=== PATIENT | female | born 1965 | race Caucasian/White ===

== ENCOUNTER 2016-11-03 07:04 | Day surgery (SDC) | payer BC ==
[~2016-11-03] VITALS: Ht 154.9 cm; Wt 80.9 kg
[~2016-11-03 07:04] MED LIST: AMI25 PO; ATOR10TA65 PO; BACL10TA PO; BCL80INH INH; BUPR150T18 PO; BUPR300T48 PO; CALC600T PO; CHOL200043 PO; CITA-98 PO; CITA20TA11 PO; CYCL-319 PO; GLUC15002 PO; HYDR-1666 PO; IBUP800T25 PO; LIDO700A31 TP; LITH300T26 PO; LORA10TA3 PO; LOVA20TA PO; MELO-174 PO; MONT10TA24 PO; MULT-860 PO; OMEP40CA6 PO; OXCA300O PO; TRAZ100T15 PO; ZIPR20CA7 PO; ZIPR20VI PO
[2016-11-03 07:36] VITALS: Ht 154.9 cm; Wt 80.9 kg
[2016-11-03] MEDS ORDERED: PROPOFOL 40 ML ONE (08:02)
[2016-11-03] MEDS ORDERED: MIDAZOLAM 1 MG/ML 2 ML INJ ONE (08:02)
[2016-11-03 08:05] VITALS: BP 129/94; PULSE 82; RESP 20
[2016-11-03] MEDS ORDERED: PROPOFOL 20 ML ONE (08:20)
[2016-11-03 09:30] VITALS: BP 118/90; PULSE 92; RESP 20
[2016-11-03 09:32] VITALS: BP 120/91; RESP 20
--- NOTE | 2016-11-03 16:46 | GILP ---
DATE OF PROCEDURE: NAME OF PROCEDURE: Esophagogastroduodenoscopy. PREOPERATIVE DIAGNOSIS: The patient presenting with history of chronic abdominal discomfort, chroni c heartburn, rule out gastroesophageal reflux disease, Lima esophagus, rule out peptic ulcer dise ase. POSTOPERATIVE DIAGNOSES: 1. Prepyloric ulcer. 2. Antral erosions. 3. Reflux esophagitis, milder degree. DESCRIPTION OF PROCEDURE: After the informed written consent was obtained, the patient was asked to lie on the left lateral side. Intravenous anesthesia was given by nurse shear operator automatic. When the pat ient became somnolent, Olympus video upper endoscope was introduced into the oropharynx, then into t he esophagus. Esophagus appeared to show evidence of erythema above the GE junction indicating mild reflux esophagitis. Biopsies were obtained to rule out eosinophilic esophagitis. Scope at this ti me was advanced into the stomach. About a 6 to 7 mm superficial ulcer was noted in the prepyloric a jeremy. Biopsies were obtained to rule out malignancy. Few erosions were noted in the antrum. Biopsy was done from the antrum, the lesser curvature and the fundus to rule out H pylori infection. Duod enum was examined up to the end of the third portion. Scope at this time was withdrawn, no addition al abnormalities detected, and the procedure was terminated. PLAN: Recommend omeprazole 40 mg a day for 8 weeks and wait for the pathology report. Dictated By: ANNAMARIE WEBSTER/LUI Conf#: [id number] DID#: [id number] CC: Juju Dia;*EndCC*
--- NOTE | 2016-11-03 16:52 | GILP ---
DATE OF PROCEDURE: 11/03/2016 PROCEDURE: Colonoscopy and polypectomy. PREOPERATIVE DIAGNOSIS: The patient presenting with history of no complaints. This is a screening colonoscopy to rule out colon polyps. POSTOPERATIVE DIAGNOSES: A 6 mm polyp on a stalk noted in the proximal ascending colon. Polypectom y was performed by using the hot snare. DESCRIPTION OF PROCEDURE: After informed written consent was obtained, the patient was asked to lie on the left lateral side. Intravenous anesthesia was given by the nurse planner chief. When the pat ient became somnolent, the Olympus video colonoscope was introduced into the rectum and scope was ad vanced all the way to the cecum. The proximal ascending colon showed evidence of a 6 mm polyp on a stalk, just a small stalk. By using the hot snare, polypectomy was performed and polyp was retrieve d. Scope at this time was withdrawn and on the way out, no additional abnormalities detected and re troflexion was performed, the procedure was terminated. PLAN: Recommend wait for the pathology report. Also, recommend repeat colonoscopy in 5 years. Dictated By: ANNAMARIE WEBSTER/LUI Conf#: [id number] DID#: [id number] CC: Juju Dia;*End*
== END 2016-11-03 09:30 | disposition home or self-care (01) ==
LOC: GIL 07:04
PROVIDERS: ATTEND Internal Medicine Gastroenterology
DX: Z12.11 Encounter for screening for malignant neoplasm of colon (principal); K21.0 Gastro-esophageal reflux disease with esophagitis; D12.2 Benign neoplasm of ascending colon; K22.10 Ulcer of esophagus without bleeding; J44.9 Chronic obstructive pulmonary disease, unspecified
CPT/HCPCS: 43239; 45380; J2250; Z7610; 88305; 88312; 88313

== ENCOUNTER 2017-01-19 07:05 | Day surgery (SDC) | payer BC ==
[~2017-01-19] VITALS: Ht 154.9 cm; Wt 82.2 kg
[~2017-01-19 07:05] MED LIST changes: -ATOR10TA65 PO; -CALC600T PO; -HYDR-1666 PO; -IBUP800T25 PO; -LORA10TA3 PO; -LOVA20TA PO; -MELO-174 PO; -MONT10TA24 PO; -OMEP40CA6 PO
[2017-01-19 08:26] VITALS: Ht 154.9 cm; Wt 82.2 kg
[2017-01-19] MEDS ORDERED: LIDOCAINE 4% SOLUTION 50 ML BTL ONE (08:35)
[2017-01-19 08:41] VITALS: BP 117/63; PULSE 81; RESP 18
[2017-01-19] MEDS ORDERED: MIDAZOLAM 1 MG/ML 2 ML INJ ONE ×2 (09:12)
[2017-01-19] MEDS ORDERED: FENTAnyl 50 MCG/ML VIAL ONE (09:12)
[2017-01-19 09:18] VITALS: BP 102/66; PULSE 80; RESP 18
--- NOTE | 2017-01-19 09:49 | GILP ---
DATE OF PROCEDURE: NAME OF PROCEDURE: Esophagogastroduodenoscopy. PREOPERATIVE DIAGNOSIS: Patient presenting with a history of a chronic abdominal discomfort and dys pepsia, history of gastric ulcer. Rule out persistent gastric ulcer. Rule out esophagitis. POSTOPERATIVE DIAGNOSES 1. Mild esophagitis, [place] classification A. 2. Antral erosions. 3. Fundal minimal gastritis. 4. Duodenal erosions. DESCRIPTION OF PROCEDURE: After the informed written consent was obtained, the patient was asked to lie on the left lateral side, 3 mg Versed and 75 mcg of fentanyl was given as intravenous anesthesi a. When the patient became somnolent, the Olympus video upper endoscope was introduced into the orophar ynx, then into the esophagus. Several areas of erythema noted in the lower esophagus just above the GE junction indicating mild reflux esophagitis, [place] classification A. Biopsies were obtaine d to rule out Lima's esophagus. Stomach was examined, which showed multiple superficial erosions in the antrum, fundus of the stomach showed a salt and pepper type of gastritis. Biopsies were don e from the antrum, the lesser curvature and fundus of the cardia to rule out H. pylori infection. D uodenum showed evidence of multiple linear erosions in the second part of the duodenum, but no ulcer s, no tumor noted. Biopsies were obtained to rule out any possible upper opportunistic infections o r any evidence of sprue. Scope at this time was withdrawn and no additional abnormalities detected and the procedure was terminated. PLAN: Recommend proton pump inhibitor therapy. Recommend to discontinue nonsteroidal anti-inflamma tory medications. Dictated By: ANNAMARIE WEBSTER/LUI Conf#: [id number] DID#: [id number] CC: [place];*EndCC*
== END 2017-01-19 10:40 | disposition home or self-care (01) ==
LOC: GIL 07:05
PROVIDERS: ATTEND Internal Medicine Gastroenterology
DX: K21.0 Gastro-esophageal reflux disease with esophagitis (principal); K29.60 Other gastritis without bleeding
CPT/HCPCS: 43239; 88305; 88312; 88313; J2250; J3010; Z7610